=== PATIENT | female | born 1990 | race Caucasian/White ===

== ENCOUNTER 2017-11-07 10:12 | Emergency (ER) | payer MEDICAID, OTHER ==
[2017-11-07 10:16] VITALS: RESP 18; TEMP 97.9
--- NOTE | 2017-11-07 10:42 | C.PDOC ---
History Of Present Illness 27 yr old female presents to the ER stating while going down the stairs yesterday she twisted her left ankle around 6pm. Patient states she was able to walk on the foot and went to went work but the pain worsened as the day went on. Reports using Motrin but the pain persists. Patient has history of obesity. Denies leg pain, weakness or numbness. Time Seen by Provider: 11/07/17 10:40 Chief Complaint (Nursing): Lower Extremity Problem/Injury History Per: Patient History/Exam Limitations: no limitations Onset/Duration Of Symptoms: Sudden Onset (Last night aroun 6pm) - Ankle/Foot Description Of Injury: Twisted Alleviating Factor(s): OTC Pain Medication (Motrin) Past Medical History Reviewed: Historical Data, Nursing Documentation, Vital Signs Vital Signs: Last Vital Signs Temp 97.9 F 11/07/17 10:15 Pulse 84 11/07/17 11:16 Resp 18 11/07/17 11:16 BP 123/74 11/07/17 11:16 Pulse Ox 96 11/07/17 11:53 - [employer] Procedures MANUAL ASSIST TENAIV NEC (08/16/15) Family History: States: No Known Family Hx - Social History Hx Tobacco Use: No Hx Alcohol Use: No Hx Substance Use: No - Immunization History Hx Tetanus Toxoid Vaccination: No Hx Influenza Vaccination: No Hx Pneumococcal Vaccination: No Review Of Systems Except As Marked, All Systems Reviewed And Found Negative. Musculoskeletal: Positive for: Other (Left ankle pain). Negative for: Leg Pain Neurological: Negative for: Weakness, Numbness Physical Exam - Physical Exam Appears: Non-toxic, No Acute Distress Skin: Warm, Dry, No Rash Head: Atraumatic, Normacephalic Oral Mucosa: Moist Cardiovascular: Rhythm Regular, No Murmur Respiratory: Normal Breath Sounds, No Rales, No Rhonchi, No Stridor, No Wheezing Extremity: Normal ROM (Left ankle, normal ROM but with pain), Tenderness (Left ankle, lateral malleolus tenderness), No Calf Tenderness, Capillary Refill (<2 secs), Swelling (Left lateral ankle swelling ) Pulses: Left Dorsalis Pedis: Normal, Right Dorsalis Pedis: Normal Neurological/Psych: Oriented x3, Normal Speech, Normal Motor, Normal Sensation ED Course And Treatment O2 Sat by Pulse Oximetry: 96 (RA) Pulse Ox Interpretation: Normal - Other Rad X-Ray - Left Ankle X-Ray: Interpreted by Me, Viewed By Me Interpretation: NEG. Medical Decision Making Medical Decision Making: IMPRESSION: Ankle fracture vs. ankle sprain. PLAN: * X-Ray - Left Ankle * Motrin PO NOTE: * Patient refused crutches. * Chirag bandage was applied to the ankle and patient was instructed on RICE. Disposition - Disposition Referrals: Cristy Garduno MD [Staff Provider] - Disposition: HOME/ ROUTINE Disposition Time: 11:02 Condition: FAIR Additional Instructions: Ms. Benjamin, thank you for letting us take care of you today. Return to the ER if your symptoms worsen, or if any problems. Take the medication listed below as prescribed. Elevate your ankle and rest for the next couple of days. Also apply a cold pack periodically for additional relief. Call the orthopedic physician--Dr. Beckham--at the phone number listed below to make an appointment so you can be re-evaluated. Prescriptions: Ibuprofen [Motrin Tab] 1 tab PO TID PRN #30 tab PRN Reason: Pain, Moderate (4-7) Instructions: Ankle Sprain (ED) Forms: [facility] (Kittitian), General Discharge Instructions Print Language: LITHUANIAN - Clinical Impression Clinical Impression: Ankle sprain - Scribe Statement The provider has reviewed the documentation as recorded by the Marceloibrob Koehler Provider Attestation: All medical record entries made by the Scribe were at my direction and personally dictated by me. I have reviewed the chart and agree that the record accurately reflects my personal performance of the history, physical exam, medical decision making, and the department course for this patient. I have also personally directed, reviewed, and agree with the discharge instructions and disposition.
[2017-11-07 11:19] VITALS: BP 123/74; PULSE 84
[2017-11-07 11:48] VITALS: O2SAT 96
--- NOTE | 2017-11-07 12:05 | RAD ---
PROCEDURE: Left Ankle Radiographs. HISTORY: Fell down stairs; w/ left ankle shoulder trauma COMPARISON: None FINDINGS: BONES: Normal. No fracture. JOINTS: Normal. No osteoarthritis. Ankle mortise maintained. Talar dome intact SOFT TISSUES: [id number] soft tissue swelling OTHER FINDINGS: None. IMPRESSION: No evidence of acute fracture.
== END 2017-11-07 11:17 | disposition home or self-care (01) ==
LOC: C.ER 10:12
DX: S93.402A Sprain of unspecified ligament of left ankle, initial encounter (principal); X50.1XXA Overexertion from prolonged static or awkward postures, initial encounter; Y93.89 Activity, other specified; Y92.89 Other specified places as the place of occurrence of the external cause

== ENCOUNTER 2019-01-28 08:59 | Emergency (ER) | payer SELFPAY ==
[2019-01-28 09:09] VITALS: TEMP 97.7
[2019-01-28] MEDS ORDERED: Sodium Chloride 0.9% 1,000 ML IV ONE (09:10)
[2019-01-28 09:32] LABS: SQUAMOUS EPITHIAL 17 /hpf (0-5); URINE BACTERIA OCC (<OCC); URINE BILIRUBIN NEGATIVE (NEGATIVE); URINE BLOOD 3+ (NEGATIVE); URINE CLARITY Hazy (Clear); URINE COLOR Yellow (YELLOW); URINE GLUCOSE (UA) NORMAL (Normal); URINE LEUKOCYTE ESTERASE TRACE Leu/uL (Negative); URINE PROTEIN 2+ mg/dL (NEGATIVE); URINE UROBILINOGEN NORMAL mg/dL (0.2-1.0)
--- NOTE | 2019-01-28 09:33 | C.PDOC ---
History Of Present Illness Patient reports she is 6 weeks and complains of pelvic pain with vaginal bleeding for one week. She states the bleeding started off lightly but has gotten heavier. She reports pain is worse on the right side. She reports she had an IUD which was removed 12/31/18. She is LMP 12/16/[address] Forbes. Time Seen by Provider: 01/28/19 09:10 Chief Complaint (Nursing): Female Genitourinary History Per: Patient History/Exam Limitations: no limitations Onset/Duration Of Symptoms: Days Current Symptoms Are (Timing): Still Present Severity: Moderate Quality Of Discomfort: "Pain" Abnormal Vaginal Bleeding: Yes Last Menstral Period: 12/16/18 Past Medical History Reviewed: Historical Data, Nursing Documentation, Vital Signs Vital Signs: Last Vital Signs Temp 97.7 F 01/28/19 09:01 Pulse 66 01/28/19 09:01 Resp 20 01/28/19 09:01 BP 105/72 01/28/19 09:01 Pulse Ox 100 01/28/19 09:01 - Medical History PMH: No Chronic Diseases Surgical History: No Surg Hx - [facility] Procedures MANUAL ASSIST DELIV NEC (08/16/15) Family History: States: Unknown Family Hx - Social History Hx Tobacco Use: No Hx Alcohol Use: No Hx Substance Use: No - Immunization History Hx Tetanus Toxoid Vaccination: No Hx Influenza Vaccination: No Hx Pneumococcal Vaccination: No Review Of Systems Except As Marked, All Systems Reviewed And Found Negative. Constitutional: Negative for: Fever, Chills Gastrointestinal: Negative for: Nausea, Vomiting, Diarrhea Genitourinary: Positive for: Vaginal Bleeding, Pelvic Pain. Negative for: Dysuria, Frequency Neurological: Negative for: Weakness, Dizziness Physical Exam - Physical Exam Appears: Well, Non-toxic, No Acute Distress Skin: Warm, Dry, No Rash Head: Atraumatic, Normacephalic Eye(s): bilateral: Normal Inspection Neck: Normal ROM Chest: Symmetrical Cardiovascular: Rhythm Regular, No Murmur Respiratory: Normal Breath Sounds, No Accessory Muscle Use Gastrointestinal/Abdominal: Soft, Tenderness (Suprapubic tenderness, right > left), No Guarding, No Rebound Back: No CVA Tenderness, No Vertebral Tenderness Pelvic: Normal External Exam, Vaginal Bleeding (moderate), No Cervical Motion Tenderness, No Adnexal Tenderness Extremity: Bilateral: Atraumatic, Normal Color And Temperature, Normal ROM Neurological/Psych: Oriented x3, Normal Speech Gait: Steady ED Course And Treatment - Laboratory Results Result Diagrams: 01/28/19 09:41 01/28/19 09:41 Lab Interpretation: No Acute Changes O2 Sat by Pulse Oximetry: 100 (RA) Pulse Ox Interpretation: Normal - CT Scan/US Pelvic US Other Rad Studies (CT/US): Read By Radiologist, Radiology Report Reviewed CT/US Interpretation: Accession No. : [id number]. Patient Name / ID : DELMER GUERRA / [id number]. Exam Date : 01/28/2019 10:29:53 ( Approved ). Study Comment : Sex / Age : F / 28Y. Creator : Lillie Flores MD. Dictator : Lillie Flores MD. Teacher Dramatics : Veterans' Counselor : Lillie Flores MD. Approver2 : Report Date : 01/28/2019 11:38:02. My Comment : . Date of service: 01/28/2019. Indication: preg bleeding, pain. Comparison: None available. Technique: Real-time transabdominal pelvic ultrasound was performed. In addition a transvaginal pelvic ultrasound was necessary to better depict pelvic anatomy. Findings: The uterus measures approximately 12.1 x 6.5 x 8.5 cm. Anteverted. Cervix length measures approximately 3.9 cm. Trace fluid noted in the cervix. There is a single intrauterine fetus present. The gestational sac measures 2.0 cm and is compatible with a gestational age of 6 weeks 3 days. The crown-rump length measures 0.4 cm and is compatible with a gestational age of 6 weeks 0 days. There is heart motion which measured 62.1 BPM. The right ovary measures 3.2 x 1.9 x 3.0 cm. The left ovary measures 3.5 x 1.9 x 3.1 cm. Blood flow was demonstrated to both ovaries. Impression: Live single intrauterine with estimated gestational age 6 weeks 0 days by crown-rump length calculation. heart rate 62.1 bpm. Advise an anomaly screen at 16-18 weeks gestational age. Trace fluid in the cervix. Medical Decision Making Medical Decision Making: Impression: Pelvic pain, Vaginal bleeding during Initial Plan: - Type/screen - Blood work - Urinalysis - Transvag/Pelvic US - IV fluids infusing Imaging and labs reviewed. US shows single live IUP with heart rate 62.1 bpm. 11:55am Paged OB on-call, Dr. Anguiano, who is currently in delivery. Awaiting call back. 12:[address] Anguiano, reviewed findings. Patient can be discharged home with dx of threatened , instructed outpatient follow up in the clinic. Disposition Counseled Patient/Family Regarding: Diagnosis, Need For Followup - Disposition Referrals: Sorin Forbes MD [Staff Provider] - Disposition: HOME/ ROUTINE Disposition Time: 12:41 Condition: STABLE Additional Instructions: Follow up with Dr Forbes in 1 week for further care Instructions: Threatened Miscarriage (DC) Forms: [employer] (Kinyarwanda) - POA Present On Arrival: None - Clinical Impression Clinical Impression: Threatened miscarriage - PA / HAIRPIECE STYLIST / Resident Statement MD/DO has reviewed & agrees with the documentation as recorded. - Scribe Statement The provider has reviewed the documentation as recorded by the Scribe Hallie Dhillon All medical record entries made by the Scribe were at my direction and personally dictated by me. I have reviewed the chart and agree that the record accurately reflects my personal performance of the history, physical exam, medical decision making, and the department course for this patient. I have also personally directed, reviewed, and agree with the discharge instructions and disposition.
[2019-01-28 09:56] LABS: BASO % 0.6 % (0.0-2.0); EOS # 0.1 K/uL (0.0-0.7); EOS % 1.2 % (0.0-4.0); HEMOGLOBIN 13.1 g/dL (11.0-16.0); LYMPH # 1.8 K/uL (1.0-4.3); LYMPH % 22.7 % (20.0-40.0); MEAN CELL VOLUME 87.2 fL (81.0-99.0); MEAN CORPUSCULAR HEMOGLOBIN 28.6 pg (27.0-31.0); MEAN CORPUSCULAR HGB CONC 32.8 g/dL (33.0-37.0); MEAN PLATELET VOLUME 7.9 fL (7.2-11.7); MONO # 0.3 K/uL (0.0-0.8); MONO % 4.2 % (0.0-10.0); NEUT # 5.6 K/uL (1.8-7.0); NEUT % 71.3 % (50.0-75.0); RBC 4.6 Mil/uL (3.80-5.20); WHITE BLOOD COUNT 7.9 K/uL (4.8-10.8)
[2019-01-28 10:13] LABS: ALB/GLOB RATIO 1.6 (1.0-2.1); ALBUMIN 4.4 g/dL (3.5-5.0); ALT/SGPT 24 U/L (9-52); AST/SGOT 26 U/L (14-36); BLOOD UREA NITROGEN 16 mg/dL (7-17); CALCIUM 8.9 mg/dl (8.6-10.4); GFR NON-AFRICAN AMERICAN > 60
[2019-01-28] MEDS ORDERED: Sodium Chloride 0.9% 1,000 ML ONE (10:56)
--- NOTE | 2019-01-28 11:41 | US ---
Date of service: 01/28/2019 Indication: preg bleeding, pain Comparison: None available Technique: Real-time transabdominal pelvic ultrasound was performed. In addition a transvaginal pelvic ultrasound was necessary to better depict pelvic anatomy. Findings: The uterus measures approximately 12.1 x 6.5 x 8.5 cm. Anteverted. Cervix length measures approximately 3.9 cm. Trace fluid noted in the cervix. There is a single intrauterine fetus present. The gestational sac measures 2.0 cm and is compatible with a gestational age of 6 weeks 3 days. The crown-rump length measures 0.4 cm and is compatible with a gestational age of 6 weeks 0 days. There is heart motion which measured 62.1 BPM. The right ovary measures 3.2 x 1.9 x 3.0 cm. The left ovary measures 3.5 x 1.9 x 3.1 cm. Blood flow was demonstrated to both ovaries. Impression: Live single intrauterine with estimated gestational age 6 weeks 0 days by crown-rump length calculation. heart rate 62.1 bpm. Advise an anomaly screen at 16-18 weeks gestational age Trace fluid in the cervix.
[2019-01-28 12:55] VITALS: RESP 16
[2019-01-28 13:00] VITALS: BP 108/73; PULSE 68
[2019-01-28 13:50] VITALS: O2SAT 100
== END 2019-01-28 12:58 | disposition home or self-care (01) ==
LOC: C.ER 08:59
DX: O20.0 Threatened abortion (principal); Z3A.01 Less than 8 weeks gestation of pregnancy
CPT/HCPCS: 76805; 76817; 80053; 81001; 81025; 84702; 85025; 86850; 86900; 96361; 96374; 99285; J2405; J7030